=== PATIENT | female | born 1955 | race Caucasian/White ===

== ENCOUNTER 2022-01-05 10:00 | Outpatient (CLI) | payer MEDICARE, BC, SELFPAY ==
--- NOTE | 2022-01-05 10:20 | CRLHL7_ITS ---
For Patients: As a result of the Century Cures Act, medical imaging exams and procedure reports are released immediately into your electronic medical record. You may view this report before your referring provider. If you have questions, please contact your health care provider. BILATERAL SCREENING MAMMOGRAM WITH COMPUTER-AIDED DETECTION AND TOMOSYNTHESIS TECHNIQUE: CC and MLO views were obtained. These mammographic images have been obtained using full-field digital technique. These mammographic images were interpreted with the benefit of computer-aided detection. Breast Tomosynthesis was used in this interpretation. COMPARISON FILM: 07/22/20, 06/03/19, 01/17/18. FINDINGS: The breasts are heterogeneously dense, which may obscure small masses IMPRESSION: There is no radiographic evidence for malignancy. ASSESSMENT: BI-RADS Category 1: Negative RECOMMENDATION: Routine screening mammogram in 1 year. A lay language report of this examination will be provided to the patient. Florecita Zuluaga M.D. Diagnostic/Breast Radiologist [email or web address] NICK/Dictated by: Florecita Zuluaga MD @ 01/05/2022 12:30:00 PM (Electronically Signed)
== END 2022-01-05 10:01 | disposition home or self-care (01) ==
LOC: MAMMO 10:05
PROVIDERS: PCP Internal Medicine; Visit Provider Internal Medicine
DX: Z12.31 Encounter for screening mammogram for malignant neoplasm of breast (principal); R92.2 Inconclusive mammogram
CPT/HCPCS: 77063; 77067

== ENCOUNTER 2022-03-06 16:04 | Outpatient (CLI) | payer MEDICARE, BC, SELFPAY ==
[2022-03-06 11:18] LABS: Cholesterol* 205 mg/dL (90-199)
[2022-03-06 11:19] LABS: HDL Cholesterol* 65 mg/dL (>=50); LDL Cholesterol Calculated 125 mg/dL (<100); Triglycerides* 75 mg/dL (40-149)
[2022-03-06 11:34] LABS: Vitamin D 25 Hydroxy* 39 ng/mL (30-80)
== END 2022-03-06 16:05 | disposition home or self-care (01) ==
PROVIDERS: PCP Internal Medicine; Visit Provider Internal Medicine
DX: E78.5 Hyperlipidemia, unspecified (principal); M85.80 Other specified disorders of bone density and structure, unspecified site
CPT/HCPCS: 80061; 82306

== ENCOUNTER 2022-04-14 07:50 | Outpatient (CLI) | payer MEDICARE, BC, SELFPAY | END 2022-04-14 07:51 | disposition home or self-care (01) | LOC: RAD 07:51 | PROVIDERS: PCP Internal Medicine; Visit Provider Internal Medicine | DX: I34.0 Nonrheumatic mitral (valve) insufficiency (principal); I35.1 Nonrheumatic aortic (valve) insufficiency; I51.7 Cardiomegaly | CPT/HCPCS: 93306 ==

== ENCOUNTER 2023-03-08 11:15 | Outpatient (CLI) | payer MEDICARE, BC, SELFPAY ==
--- NOTE | 2023-03-08 11:30 | CRLHL7_ITS ---
For Patients: As a result of the Century Cures Act, medical imaging exams and procedure reports are released immediately into your electronic medical record. You may view this report before your referring provider. If you have questions, please contact your health care provider. BILATERAL SCREENING MAMMOGRAM WITH COMPUTER-AIDED DETECTION AND TOMOSYNTHESIS TECHNIQUE: CC and MLO views were obtained. These mammographic images have been obtained using full-field digital technique. These mammographic images were interpreted with the benefit of computer-aided detection. Breast Tomosynthesis was used in this interpretation. COMPARISON FILM: 01/05/22, 07/22/20, 06/03/19. FINDINGS: The breasts are heterogeneously dense, which may obscure small masses IMPRESSION: There is no radiographic evidence for malignancy. ASSESSMENT: BI-RADS Category 1: Negative RECOMMENDATION: Routine screening mammogram in 1 year. A lay language report of this examination will be provided to the patient. Mateusz Romero M.D. Diagnostic Radiologist [email or web address] [email or web address]/chyna / be/Dictated by: Mateusz Romero MD @ 03/08/2023 1:04:00 PM (Electronically Signed)
== END 2023-03-08 11:16 | disposition home or self-care (01) ==
LOC: MAMMO 11:17
PROVIDERS: PCP Internal Medicine; Visit Provider Internal Medicine
DX: Z12.31 Encounter for screening mammogram for malignant neoplasm of breast (principal); R92.2 Inconclusive mammogram
CPT/HCPCS: 77063; 77067

== ENCOUNTER 2023-04-04 14:54 | Outpatient (CLI) | payer MEDICARE, BC, SELFPAY | END 2023-04-04 14:55 | disposition home or self-care (01) | LOC: RAD 14:56 | PROVIDERS: PCP Internal Medicine; Visit Provider Internal Medicine | DX: I35.1 Nonrheumatic aortic (valve) insufficiency (principal); I51.7 Cardiomegaly; I34.0 Nonrheumatic mitral (valve) insufficiency | CPT/HCPCS: 93306 ==

== ENCOUNTER 2023-04-05 07:25 | Outpatient (CLI) | payer MEDICARE, BC, SELFPAY ==
--- OUTSIDE RECORDS SUMMARY | 2023-04-11 20:04 | XMS_ITS | Clinical Summary ---
Author Name Unknown Organization [facility] Address [address], [place] [address] Care Team Providers Care Inventory Management Specialist Name Role Phone Unavailable Primary Care Provider Unavailabl e Source Comments You are receiving this document as you are listed as the primary care provider,follow-up provider, or the patient has been referred to you for consultation.This is in compliance with the Medicare and[facility] EHR Incentive Program,which states Providers who transition their patient to another setting of careor provider of care or refers their patient to another provider of care shouldprovide summary care record for each transition of care or referral. [facility] Allergies No known active allergies Medications No known medications Social History Tobacco Use Types Packs/Day Years Used Date Smoking Tobacco: Never Assessed Sex and Gender Information Value Date Recorded Sex Assigned at Not on file Gender Identity Not on file Sexual Orientation Not on file Plan of Treatment Health Maintenance Due Date Last Done Comments Colon Cancer Screening Plan Due 1955 Hep C Screening (Preventive Services) 1955 Mammogram 1955 COVID-19 Vaccine (#1) 03/30/1956 Adult Preventive Visit 1974 Cholesterol 2001 Pneumococcal 65+ Yrs (1 - PCV) 2021 Influenza (#1) 2022 01/11/2021, 12/02, 02/12/2019, Additional history exists DTaP/Tdap/Td (2 - Tdap) 03/07/2029 03/07/2019 Zoster/Shingles Completed 09/25/2018, 04/17/2018 HepA Aged Out 11/13/2019, 05/15/2019 No lo nger eligible based on patient's age to complete this topic HepB Aged Out No longer eligi ble based on patient's age to complete this topic Hib Aged Out No longer eligi ble based on patient's age to complete this topic IPV (Polio) Aged Out No longer eligi ble based on patient's age to complete this topic MCV4 Aged Out No longer eligi ble based on patient's age to complete this topic
--- OUTSIDE RECORDS SUMMARY | 2023-04-11 20:04 | XMS_ITS | Clinical Summary ---
Author Name Unknown Organization [facility] Address [place], [place] [address] Care Team Providers Care Ring Rolling Machine Operator Name Role Phone Litzy Fontana MD Primary Care Provider Unavai lable Allergies No known active allergies Medications No known medications Encounters Date Type Department Care Team Description 04/10/2023 Telephone [email or web address] [address] [place] [address] Tevin Hunter MD Results 04/04/2023 3:00 PM RESEARCH ANTHROPOLOGIST Orders Only [facility] [address] [place] [address] 2 scans: (2-Ord) ECHO TTE COMPLETE WO CONTRAST ([id number]) from Last 3 Months Social History Tobacco Use Types Packs/Day Years Used Date Smoking Tobacco: Never Smokeless Tobacco: Never Tobacco Cessation:Counseling Given: Yes Social Connections Answer Date Recorded Frequency of Communication with Friends and Fami ly Not on file 04/02/2021 Financial Resource Strain Answer Date R ecorded Difficulty of Paying Living Expenses Not on file 04/02/2021 Difficulty of Paying Living Expenses Not on file 04/02/2021 Sex and Gender Information Value Date Recorded Sex Assigned at Not on file Gender Identity Not on file Sexual Orientation Not on file Obstetrics History Last Filed Vital Signs Vital Sign Reading Time Taken Comments Blood Pressure 133/67 09/19/2022 3:07 PM CDT tow er Pulse 75 09/19/2022 3:07 PM CDT Temperature - - Respiratory Rate - - Oxygen Saturation 100% 09/19/2022 3:07 PM CDT Inhaled Oxygen Concentration - - Weight 58.1 kg (128 lb) 09/19/2022 3:07 PM CDT Height - - Body Mass Index - - Plan of Treatment Health Maintenance Due Date Last Done Comments Tdap 09/29/1967 Depression screening for age 12+ 1968 BMI (ht and wt on same day) for age 18+ 1974 Hepatitis C screening for age 18-79 1974 Tetanus booster 1976 Colonoscopy through age 75 2001 Lipids for age 45-75 2001 Mammogram for age 45-75 2001 Zoster (shingles) series for age 50+ (1 of 2) 2006 DEXA/DXA scan for age 65+ 2021 Medicare Wellness for age 65+ 2021 Pneumococcal series for age 65+ (1 of 1 - PCV) 2021 COVID-19 vaccine series (2022-24 season) 2022 12/12/2021, 06/12/2020, 05/22/2020 Influenza for age 65+ 12/01/2022 Procedures Procedure Name Priority Date/Time Associated Diagnosis Comments ECHO TTE COMPLETE WO CONTRAST Routine 04/04/2023 3:43 PM RESEARCH ANTHROPOLOGIST Nonrheumatic aortic (valve) insufficiency from Last 3 Months Results * ECHO TTE COMPLETE WO CONTRAST (04/04/2023 3:43 PM RESEARCH ANTHROPOLOGIST) AORTIC VALVE MEAN PG 6 mmHg EJECTION FRACTION 63 % PEAK TR VELOCITY 2.8 m/s LVEDD 4.3 cm EJECTION FRACTION 60 - 65% Anatomical Region Laterality Modality Ultrasound 04/04/2023 3:08 PM RESEARCH ANTHROPOLOGIST Narrative 04/04/2023 5:07 PM RESEARCH ANTHROPOLOGIST ECHOCARDIOGRAM ANJANA Frazier DOMINIQUE ? Accession#: ?? [id number] : ?1955 67 years Study Date: ?? 04/04/2023 3:08:16 PM Gender: F ?BP: ? 155/73 mmHg Height: 175.00 cm ?BSA: ?1.69 m? ? ? Weight: 57.00 kg ? Tech: ? MCK ? Referring MD: TEVIN HUNTER Site: ? [facility] Reading Location: Mobile-OP Patient Location: Outpatient. Procedure: 2D, Color Doppler and Spectral Doppler. Indication for study: Nonrheumatic AI Cardiac Rhythm: Regular.Study quality: Fair. Final Impressions: 1. Normal LV size, borderline wall thickness, estimated EF of 60 - 65%. 2. Mild RV enlargement, normal systolic function. 3. Moderately enlarged left atrium, Irma 47 mL/m2. 4. The aortic valve is normal, no stenosis and at least moderate regurgitation. 5. 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 Mitral annular disjunction present. Comparison Compared to prior exam of 04/14/2022, there has been no significant change. - JAGDISH would be helpful to better characterize aortic and mitral valve disease Chamber Sizes and Function Normal left ventricular size, borderline wall thickness, normal global systolic function with an estimated EF of 60 - 65%. Left atrial size is moderately enlarged. Right ventricular cavity size is mildly enlarged, global systolic RV function is normal. RV wall thickness is normal. The right atrium is mildly enlarged. Right atrial volume index is 45 ml/m? ? ?. Right atrial area is 24 cm? ? ?. The pulmonary artery is of normal size and origin. The sinus of Valsalva is normal sized. The ascending aorta is normal sized. Valves, RV Pressures and Diastolic Function The aortic valve is normal in structure, no stenosis and moderate regurgitation. The mitral valve is myxomatous, moderate to severe mitral regurgitation. Indeterminate pattern of LV diastolic filling. The tricuspid valve is normal in structure. Tricuspid regurgitation is mild regurgitation. The tricuspid regurgitant velocity is 2.8 m/s, the estimated right ventricular systolic pressure is 31 mmHg plus right atrial pressure. The pulmonic valve is normal. Trace pulmonary regurgitation. Masses, Effusion, Shunts There is no pericardial effusion. The inferior vena cava is dilated, respiratory size variation less than 50%. No left to right shunting was detected by limited color flow Doppler interrogation of the interatrial septum. MEASUREMENTS AND CALCULATIONS 2-D Measurements and LV Function: LVID (d) 4.3 cm LV FS% (2D) ?? 45 % LVID (s) 2.4 cm LVOT diameter 2.3 cm IVS (d) ??1.1 cm HR ?73 bpm LVPW (d) 1.2 cm LA Vol index ??47 ml/m2 Ao Sinus 3.2 cm RA Vol index ??45 ml/m2 Asc Ao ?? 3.6 cm RA area ? 24 cm? ? ? LA ? 3.9 cm RV Max 4C (d) 4.3 cm Diastology: Mitral ?Tissue Doppler E Peak 1.1 m/s ??e', Septum ? 0.12 m/s A Peak 0.6 m/s ??e', Lateral ?0.10 m/s E/A ?1.8 ?E/e' Average ?? 10.38 DT ? 184 msec Aortic Valve: Vmax ? 1.7 m/s ??STEVEN (V) ?? 2.75 cm? AI P 1/2 332 msec VTI ?0.34 m ?? STEVEN (I) ?? 2.71 cm? ? ? LVOT V max 1.2 m/s ??Max PG ?12 mmHg LVOT VTI ?? 0.23 m ?? Mean PG ?? 6 mmHg SV ? 92 ml ?Dim Index 0.67 SV index ?? 54 ml/m? ? ? CO ?6.7 l/min ?CI ?4.0 l/min/m? ? ? Mitral Valve: MVA ?4.1 cm? ? ? MV P / 53 msec Tricuspid Valve and estimated PA pressures: TR Vmax 2.8 m/s TAPSE 2.5 cm TR maxG 31 mmHg . This study was interpreted by an [facility] accredited facility. CC: HIM (med records) [facility]. ??Final ?? Procedure Note Ganga Borges MD - 04/04/2023 ECHOCARDIOGRAM ANJANA DOMINIQUE : 1955 67 years Study Date: 04/04/2023 3:08:16 PM Gender: F BP: 155/73 mmHg Height: 175.00 cm BSA: 1.69 m? ? ? Weight: 57.00 kg Tech: [facility] [place] Referring MD: TEVIN HUNTER Site: [facility] Reading Location: Mobile-OP Patient Location: Outpatient. Procedure: 2D, Color Doppler and Spectral Doppler. Indication for study: Nonrheumatic AI Cardiac Rhythm: Regular.Study quality: Fair. Final Impressions: 1. Normal LV size, borderline wall thickness, estimated EF of 60 - 65%. 2. Mild RV enlargement, normal systolic function. 3. Moderately enlarged left atrium, Irma 47 mL/m2. 4. The aortic valve is normal, no stenosis and at least moderateregurgitation. 5. 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 Mitral annular disjunctionpresent. Comparison Compared to prior exam of 04/14/2022, there has been no significantchange. - JAGDISH would be helpful to better characterize aortic and mitral valvedisease Chamber Sizes and Function Normal left ventricular size, borderline wall thickness, normal globalsystolic function with an estimated EF of 60 - 65%. Left atrial size ismoderately enlarged. Right ventricular cavity size is mildly enlarged,global systolic RV function is normal. RV wall thickness is normal. Theright atrium is mildly enlarged. Right atrial volume index is 45 ml/m? ? ?.Right atrial area is 24 cm? ? ?. The pulmonary artery is of normal size andorigin. The sinus of Valsalva is normal sized. The ascending aorta isnormal sized. Valves, RV Pressures and Diastolic Function The aortic valve is normal in structure, no stenosis and moderateregurgitation. The mitral valve is myxomatous, moderate to severe mitralregurgitation. Indeterminate pattern of LV diastolic filling. Thetricuspid valve is normal in structure. Tricuspid regurgitation is mildregurgitation. The tricuspid regurgitant velocity is 2.8 m/s, theestimated right ventricular systolic pressure is 31 mmHg plus right atrialpressure. The pulmonic valve is normal. Trace pulmonary regurgitation. Masses, Effusion, Shunts There is no pericardial effusion. The inferior vena cava is dilated,respiratory size variation less than 50%. No left to right shunting wasdetected by limited color flow Doppler interrogation of the interatrialseptum. MEASUREMENTS AND CALCULATIONS 2-D Measurements and LV Function: LVID (d) 4.3 cm LV FS% (2D) 45 % LVID (s) 2.4 cm LVOT diameter 2.3 cm IVS (d) 1.1 cm HR 73 bpm LVPW (d) 1.2 cm LA Vol index 47 ml/m2 Ao Sinus 3.2 cm RA Vol index 45 ml/m2 Asc Ao 3.6 cm RA area 24 cm? ? ? LA 3.9 cm RV Max 4C (d) 4.3 cm Diastology: Mitral Tissue Doppler E Peak 1.1 m/s e', Septum 0.12 m/s A Peak 0.6 m/s e', Lateral 0.10 m/s E/A 1.8 E/e' Average 10.38 DT 184 msec Aortic Valve: Vmax 1.7 m/s STEVEN (V) 2.75 cm? ? ? AI P 1/2 332 msec VTI 0.34 m STEVEN (I) 2.71 cm? ? ? LVOT V max 1.2 m/s Max PG 12 mmHg LVOT VTI 0.23 m Mean PG 6 mmHg SV 92 ml Dim Index 0.67 SV index 54 ml/m? ? ? CO 6.7 l/min CI 4.0 l/min/m? ? ? Mitral Valve: MVA 4.1 cm? ? ? MV P 1/2 53 msec Tricuspid Valve and estimated PA pressures: TR Vmax 2.8 m/s TAPSE 2.5 cm TR maxG 31 mmHg . This study was interpreted by an [facility] accredited facility. CC: ALICE (med records) [facility]. Final Tevin Hunter MD ECHO ORD from Last 3 Months Care Teams Ring Rolling Machine Operator Relationship Specialty Start Date End Date Litzy Fontana MD PCP - General Family Practice 01/27/21
== END 2023-04-05 07:26 | disposition home or self-care (01) ==
LOC: NFLDREF 04-11 20:03
PROVIDERS: PCP Internal Medicine; Referring Provider Internal Medicine; Visit Provider Internal Medicine
DX: E78.5 Hyperlipidemia, unspecified (principal); M85.80 Other specified disorders of bone density and structure, unspecified site
CPT/HCPCS: 80061; 82306

== ENCOUNTER 2024-04-11 07:58 | Outpatient (CLI) | payer MEDICARE, BC, SELFPAY | END 2024-04-11 07:59 | disposition home or self-care (01) | LOC: NFLDREF 04-19 21:04 | PROVIDERS: PCP Internal Medicine; Referring Provider Internal Medicine; Visit Provider Internal Medicine | DX: E78.5 Hyperlipidemia, unspecified (principal); M81.0 Age-related osteoporosis without current pathological fracture | CPT/HCPCS: 80061; 82306 ==

== ENCOUNTER 2024-04-22 10:05 | Outpatient (CLI) | payer MEDICARE, BC, SELFPAY ==
--- NOTE | 2024-04-22 10:15 | CRLHL7_ITS ---
For Patients: As a result of the Century Cures Act, medical imaging exams and procedure reports are released immediately into your electronic medical record. You may view this report before your referring provider. If you have questions, please contact your health care provider. BILATERAL SCREENING MAMMOGRAM WITH COMPUTER-AIDED DETECTION AND TOMOSYNTHESIS TECHNIQUE: CC and MLO views were obtained. These mammographic images have been obtained using full-field digital technique. These mammographic images were interpreted with the benefit of computer-aided detection. Breast Tomosynthesis was used in this interpretation. COMPARISON FILM: 03/08/23, 01/05/22, 07/22/20. FINDINGS: The breasts are heterogeneously dense, which may obscure small masses. IMPRESSION: There is no radiographic evidence for malignancy. ASSESSMENT: BI-RADS Category 1: Negative RECOMMENDATION: Routine screening mammogram in 1 year. A lay language report of this examination will be provided to the patient. Nilson Garcia M.D. Diagnostic/Nuclear Medicine Radiologist [email or web address]/[email or web address] SP/Dictated by: Nilson Garcia MD @ 04/24/2024 9:10:00 AM (Electronically Signed)
== END 2024-04-22 10:06 | disposition home or self-care (01) ==
LOC: MAMMO 10:08
PROVIDERS: PCP Internal Medicine; Visit Provider Internal Medicine
DX: Z12.31 Encounter for screening mammogram for malignant neoplasm of breast (principal); R92.333 Mammographic heterogeneous density, bilateral breasts
CPT/HCPCS: 77063; 77067

== ENCOUNTER 2024-05-15 12:55 | Outpatient (CLI) | payer MEDICARE, BC, SELFPAY | END 2024-05-15 12:56 | disposition home or self-care (01) | LOC: RAD 12:56 | PROVIDERS: PCP Internal Medicine; Visit Provider Internal Medicine | DX: M85.89 Other specified disorders of bone density and structure, multiple sites (principal) | CPT/HCPCS: 77080 ==

== ENCOUNTER 2024-05-29 10:58 | Outpatient (CLI) | payer MEDICARE, BC, SELFPAY | END 2024-05-29 10:59 | disposition home or self-care (01) | LOC: NFLDREF 06-01 05:26 | PROVIDERS: PCP Internal Medicine; Referring Provider Internal Medicine; Visit Provider Internal Medicine | DX: R30.0 Dysuria (principal); N39.0 Urinary tract infection, site not specified; N30.00 Acute cystitis without hematuria | CPT/HCPCS: 87086 ==

== ENCOUNTER 2024-06-13 09:48 | Outpatient (CLI) | payer MEDICARE, BC, SELFPAY | END 2024-06-13 09:49 | disposition home or self-care (01) | PROVIDERS: PCP Internal Medicine; Visit Provider Internal Medicine Cardiovascular Disease | DX: I35.1 Nonrheumatic aortic (valve) insufficiency (principal); I51.7 Cardiomegaly; I34.0 Nonrheumatic mitral (valve) insufficiency; I07.1 Rheumatic tricuspid insufficiency | CPT/HCPCS: 93306 ==

== ENCOUNTER 2025-02-03 09:38 | Outpatient (CLI) | payer MEDICARE, BC, SELFPAY | END 2025-02-03 09:39 | disposition home or self-care (01) | LOC: NFLDREF 09:49 | PROVIDERS: PCP Internal Medicine; Visit Provider Internal Medicine | DX: Z01.818 Encounter for other preprocedural examination (principal) | CPT/HCPCS: 80053 ==

== ENCOUNTER 2025-02-23 16:51 | Outpatient (CLI) | payer MEDICARE, BC, SELFPAY | END 2025-02-23 16:52 | disposition home or self-care (01) | LOC: NFLDREF 16:52 | PROVIDERS: PCP Internal Medicine; Visit Provider Internal Medicine | DX: I48.91 Unspecified atrial fibrillation (principal); I97.89 Other postprocedural complications and disorders of the circulatory system, not elsewhere classified | CPT/HCPCS: 80048 ==